=== PATIENT | male | born 1995 | race Hispanic/Latino ===

== ENCOUNTER 2019-09-22 23:25 | Emergency (ER) | payer SELFPAY ==
[2019-09-23] MEDS ORDERED: HYDROcodone/Acetaminophen 5/325 mg Tablet ONE (00:24)
[2019-09-23] MEDS ORDERED: Lidocaine 1% PF 5 ML VIAL ONE (02:06)
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
== END 2019-09-23 02:47 | disposition home or self-care (01) ==
LOC: ERS 23:25
DX: S01.312A Laceration without foreign body of left ear, initial encounter (principal); W22.8XXA Striking against or struck by other objects, initial encounter
CPT/HCPCS: 12013; 70486; J2001; L0120